=== PATIENT | female | born 1985 | race Caucasian/White ===

== ENCOUNTER 2017-01-09 18:55 | Emergency (ER) | payer SELFPAY ==
[~2017-01-09] VITALS: Ht 165.1 cm; Wt 79.0 kg
[2017-01-09 19:23] LABS: HEMOGLOBIN 12.9 g/dL (11.7-16.4)
[2017-01-09 19:32] LABS: ASPARTATE AMINO TRANSFERASE 11 U/L (15-37); BLOOD UREA NITROGEN 6 mg/dL (7-18)
[2017-01-09 23:11] VITALS: BP 105/78
== END 2017-01-09 23:14 | disposition home or self-care (01) ==
LOC: ED 23:08
DX: O20.0 Threatened abortion (principal); N30.90 Cystitis, unspecified without hematuria; Z3A.14 14 weeks gestation of pregnancy
CPT/HCPCS: 36415; 76801; 80053; 81001; 84702; 85025; 86901; 87086